=== PATIENT | female | born 1930 | race Caucasian/White ===

== ENCOUNTER 2017-01-18 14:19 | Emergency (ER) | payer MEDICARE, OTHER ==
--- NOTE | ~2017-01-18 | CT71 ---
[facility] A Service of [facility] RADIOLOGY TEXT RESULTS PATIENT: JOSE ALBERTO GEE LOCATION: [facility] : 30 UNIT #: [id number] AGE: [address]: Janes Daigle MD SEX: F ORDER DR: [id number] [facility] [address] [place], [place] [address] [id number] E MR#: [id number] Acc #: [id number] NAME: JOSE ALBERTO GEE : 1930 SEX: F STUDY DATE/TIME: 01/18/2017 18:20 UNIT: [facility] ROOM: STUDY DESCRIPTION: CT Head Wo Contrast Attending Physician: Janes Daigle Ordering Physician: Ed Doctor [id number] [facility] Primary Care Physician: Le Senior M.D. MEDICAL IMAGING REPORT This report is preliminary unless electronic signature is present EXAM Head CT without contrast 01/18/2017 HISTORY Palpable knot on posterior head status post fall this morning headache, posterior head pain, diabetes and hypertension. The CT exam was performed with one or more of the following radiation dose reduction techniques: automatic exposure control, adjustment of mA and/or kV according to patient size, and iterative reconstruction. FINDINGS Multiple axial images were obtained from the skull base to vertex without intravenous contrast administration. There is generalized enlargement of the ventricles and sulci characteristic of atrophy. Tiny old lacunar infarcts are seen in the left basal ganglia. There is no midline shift. There is no mass or mass effect, hemorrhage or acute infarct. The visualized paranasal sinuses are clear. IMPRESSION Mild generalized atrophy. 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 No acute intracranial abnormality. Dictated by... John Cardenas M.D. THIS IS AN ELECTRONICALLY VERIFIED REPORT John Cardenas M.D. at 01/19/2017 2:13 PM TERESA/brad TD: 01/19/2017 09:37 JOB #: [id number] [facility] A Service of [facility] RADIOLOGY TEXT RESULTS PATIENT: JO[facility] ALBERTO GEE [id number] : [birth year] UNIT #: [id number] AGE: [address]: Janes Daigle MD SEX: F ORDER DR: MEDICAL IMAGING REPORT Page 1 of 1 COPY
[~2017-01-18 14:19] MED LIST: ACCOLATE20 MG PO; ALBUTEROL17 GM INH; AMLODIPINE BES2.5 MG PO; ASPIRIN PO; ATROVENT HFA12.9 GM INH; AUGMENTIN PO; BENADRYL PO; BENICAR HCT 40-1 TAB PO; CALCIUM/MAG/ZINC PO; CENTRUM CARDIO PO; CENTRUM PO; CENTRUM240 ML PO; FERRO-TIME325 MG PO; FLOVENT HFA12 GM INH; GARLIQUE PO; GLUCOSAMINE CHO1 CA2 PO; HYDROCHLOROTH12.5 MG PO; KEFLEX PO; LIPITOR PO; LIPITOR20 MG PO; LISINOPRIL PO; LUMIGAN; LUMIGAN2.5 ML OU; METOPROLOL TART25 MG PO; MOBIC PO; MOBIC15 MG PO; MYLANTA LIQUID355 M1; NORVASC PO; OSTEO BI FLEX PO; OYSTER CALCIUM500 MG PO; PERCOCET PO; PERCOCET5/325 PO; PRINIVIL40 MG PO; PROTONIX PO; SOOTHE HYDRATIO15 ML OU; SYMBICORT INH; THEOPHYLLIN PO; TRIAMCINOLONE A15 G4 TOP; TYLENOL EXTRA500 M1 PO; TYLOX 5-500 CA1 EACH PO; VIT B COMPLEX PO; VOLTAREN100 GM TOP; ZESTORETIC 20/11 TAB PO; ZYRTEC PO; [UNRECOGNIZED DRUG - OTHER]; [UNRECOGNIZED DRUG - OTHER] INH
== END 2017-01-18 19:35 | disposition home or self-care (01) ==
LOC: CED 14:19
DX: S00.03XA Contusion of scalp, initial encounter (principal); S81.812A Laceration without foreign body, left lower leg, initial encounter; J45.909 Unspecified asthma, uncomplicated; Z88.2 Allergy status to sulfonamides; Z88.8 Allergy status to other drugs, medicaments and biological substances; W18.2XXA Fall in (into) shower or empty bathtub, initial encounter; Y92.009 Unspecified place in unspecified non-institutional (private) residence as the place of occurrence of the external cause
CPT/HCPCS: 70450; 90715; 99283